=== PATIENT | male | born 1980 | race Caucasian/White ===

== ENCOUNTER 2016-10-10 13:00 | Emergency (ER) | payer MEDICAID ==
[~2016-10-10] VITALS: Ht 167.6 cm; Wt 77.3 kg
[~2016-10-10 13:00] MED LIST: HYDR-3731 PO; LEVE500T PO
--- OUTSIDE RECORDS SUMMARY | 2016-10-10 13:09 | XMS REPORT | Continuity of Care Document ---
Author Author [facility] Organization [facility] Address Unknown Phone Unavailable Care Team Providers Care Construction Skills Teacher Name Role Phone Hugo Bustillo PCP [phone] Source Comments Some departments are not documenting in the electronic medical record. If you do not see the information that you expected, contact Release of Information in the Health Information Management department at [phone] for further assistance in locating additional records.[facility] Active Allergies and Adverse Reactions No Known Allergies Current Medications Prescription Sig. Disp. Refills Start End Date Status Date levETIRAcetam (KEPPRA) Take 1 Tab by mouth twice 120 Tab 3 04/01/20 Active 500 mg tablet daily. 12 nicotine (NICODERM CQ Apply 1 Patch to top of 28 Patch 0 04/01/20 Active STEP 2) 14 mg/day patch skin as directed daily. 12 Active Problems Problem Noted Date Seizure (HCC) 03/29/2012 Aspiration pneumonia (HCC) 03/29/2012 Social History Tobacco Use Types Packs/Day Years Used Date Current Every Day Smoker Cigarettes 0.8 13 Alcohol Use Drinks/Week oz/Week Comments Yes 6 Cans of 3.6 beer Last Filed Vital Signs Vital Sign Reading Time Taken Blood Pressure 132/83 04/01/2012 3:00 PM CDT Pulse 97 04/01/2012 3:00 PM CDT Temperature 36.8 C (98.2 F) 04/01/2012 3:00 PM CDT Respiratory Rate - - Height 1.676 m (5' 6") 03/31/2012 7:49 PM CDT Weight 77.111 kg (170 lb) 03/29/2012 5:30 PM CDT Body Mass Index 27.45 03/29/2012 5:30 PM CDT Oxygen Saturation 100% 04/01/2012 3:00 PM CDT Plan of Care Health Maintenance Due Date Last Done Comments Physical (Comprehensive) 1989 Exam Pertussis Vaccine 1993 Tetanus Vaccine 1999 Influenza Vaccine 05/25/2015 Results from Last 3 Months Not on file
[2016-10-10 14:02] VITALS: BP 144/89
== END 2016-10-10 15:40 | disposition left against medical advice (07) ==
LOC: EDUNIT# 13:00 → ER 13:04
DX: R56.9 Unspecified convulsions (principal); Z53.21 Procedure and treatment not carried out due to patient leaving prior to being seen by health care provider
CPT/HCPCS: 99283

== ENCOUNTER → 2016-10-16 | Outpatient (CLI) | payer MEDICAID ==
[~2016-10-16] MED LIST changes: +CITA10TA7
--- OUTSIDE RECORDS SUMMARY | 2016-10-16 09:23 | XMS REPORT | Continuity of Care Document ---
Author Author [facility] Organization [facility] Address Unknown Phone Unavailable Care Team Providers Care Medical Director Name Role Phone Hugo Bustillo PCP [phone] Source Comments Some departments are not documenting in the electronic medical record. If you do not see the information that you expected, contact Release of Information in the Health Information Management department at [phone] for further assistance in locating additional records.[facility] Active Allergies and Adverse Reactions No Known [...]
--- NOTE | 2016-10-27 10:07 | ELECTROENCEPHALOPATHY REPORT ---
PROCEDURE PHYSICIAN: BRENTON SILVA DATE OF PROCEDURE: 10/16/2016 Mr. Kurt Alexander is a 36-year-old male with a history of seizure disorder. The patient has been having tonic-clonic seizure for 4 years having breakthrough seizures 1 to 2 times yearly. This study was requested to evaluate for seizure epileptiform activity. The background rhythm consisted of 10 Hz, 60 to 80 microvolts in amplitude, bilaterally symmetrical over the vertex region which was reactive to eye opening. Intermix with no epileptiform activity. Some pulse movement and muscle artifacts were present. The patient was awake, drowsy and asleep during this recording. Hyperventilation was performed and there was no build-up of diffuse or focal slow wave activity. Intermittent photic stimulation was done at various flash frequencies and no photic driving response was seen. IMPRESSION: This EEG is within normal limits in awake and sleepy states. No clear epileptiform activity is seen. A normal EEG does not exclude the diagnosis of seizure or epilepsy. Job ID: [id number] Dictated Date: 10/26/2016 15:31:19 Paving Foreman Date: 10/27/2016 10:04:18 / sarah
== END ==
LOC: RT 09:21
PROVIDERS: ATTEND Family Medicine
DX: G40.909 Epilepsy, unspecified, not intractable, without status epilepticus (principal)
CPT/HCPCS: 95819

== ENCOUNTER 2016-11-24 11:40 | Emergency (ER) | payer MEDICAID, OTHER ==
[~2016-11-24] VITALS: Ht 167.6 cm; Wt 77.3 kg
[~2016-11-24 11:40] MED LIST changes: -CITA10TA7
--- OUTSIDE RECORDS SUMMARY | 2016-11-24 11:44 | XMS REPORT | Continuity of Care Document ---
Author Author [facility] Organization [facility] Address Unknown Phone Unavailable Care Team Providers Care Special Collections Librarian Name Role Phone Hugo Bustillo PCP [phone] Source Comments Some departments are not documenting in the electronic medical record. If you do not see the information that you expected, contact Release of Information in the Health Information Management department at [phone] for further assistance in locating additional records.[facility] Active Allergies and Adverse Reactions [...]
[2016-11-24] MEDS ORDERED: CITA10TA7 (12:05)
--- NOTE | 2016-11-24 12:25 | ED Neurological Problem ---
General Chief Complaint: Neurological Problems Stated Complaint: SEIZURE Nursing Triage Note: PT ARRIVED PER EMS, PT HAD SEIZURE X2 AT WORK, PT IS AWAKE AND TIRED. PT POSTICLE FOR EMS. PT STATES IS COMPLIANT W MEDS, PT HAS SL IN L FA #20 BY EMS Nursing Sepsis Screen: No Definite Risk Source: patient Exam Limitations: no limitations History of Present Illness Time seen by provider: 12:24 Initial Comments 36-year-old male patient presents to the emergency department complains of having 2 seizures while at work today. Patient reportedly was post ictal by EMS. Patient states he has been taking medications as prescribed and denies missing any doses. Denies being incontinent of urine. Denies following and hitting his head. Patient has a h/o seizures since 2011 but no one has pin pointed the cause of the seizures. 1st episode today patient recalls standing and feeling his vision "go black" followed by lightheadedness and "blacking out ". Recalls waking up on the floor with "everyone around him". States the second episode he does not recall precipitating factors or symptoms. Timing/Duration: other (resolved at the time of exam.) Allergies and Home Medications Allergies Coded Allergies: Phenytoin Sodium Extended (Verified Allergy, Unknown, 09/27/15) phenytoin sodium (Verified Allergy, Unknown, 09/27/15) Home Medications Citalopram Hydrobromide 10 Mg Tablet, #30 (Reported) Levetiracetam 500 Mg Tab, 500 MG PO BID, (Reported) Constitutional: No chills, No dizziness, No fever, No malaise, other ((+) fatigue.) Eyes: Denies Blindness, Denies Blurred Vision, Denies Drainage, Denies Pain, Denies Photophobia, Denies Vision Changes Ears, Nose, Mouth, Throat: denies ear pain, denies ear discharge, denies nose pain, denies nose discharge, denies epistaxis, denies mouth pain, denies throat pain Respiratory: No cough, No short of breath Cardiovascular: No chest pain, No palpitations, syncope (possible syncope vs seizure.) Gastrointestinal: No abdominal pain, No constipation, No diarrhea, No nausea, No vomiting, No other (denies bowel incontinence) Genitourinary: No decreased output, No dysuria, No frequency, No hematuria, No incontinence Musculoskeletal: no symptoms reported Skin: no symptoms reported Psychiatric/Neurological: See HPI, Denies Cognitive Dysfunction, Headache, Denies Numbness, Denies Tingling, Denies Unable to Move Lower Ext, Denies Unable to Move Upper Ext, Denies Weakness All Other Systems Reviewed Negative Unless Noted: Yes (Negative excepted noted.) Past Rgbpdgu-Xjldzp-Jbuqdg Hx Patient Social History Alcohol Use: Rarely Uses Recreational Drug Use: Yes Smoking Status: Never a Smoker Recent Foreign Travel: No Contact w/Someone Who Travel: No Recent Infectious Disease Expo: No Recent Hopitalizations: No Seasonal Allergies Seasonal Allergies: No Surgeries HX Surgeries: Yes (LEFT ORBITAL BONE-PLATES AND SCREW, RIGHT JAW, lump removed behind R ear) Respiratory Hx Respiratory Disorders: Yes (history of pulm. edema, hypoxia and poss. 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, PAROTID GLAND TUMOR, DENTURES) Loss of Vision: Denies Hearing Impairment: Denies Cancer Hx Cancer: No Psychosocial Hx Psychiatric Problems: No Integumentary HX Skin/Integumentary Disorder: No Blood Transfusions Hx Blood Disorders: No Adverse Reaction to a Blood Tr: No Reviewed Nursing Assessment Reviewed/Agree w Nursing PMH: Yes Family Medical History Significant Family History: No Pertinent Family Hx Physical Exam Vital Signs Capillary Refill : Less Than 3 Seconds General Appearance: WD/WN, no apparent distress HEENT: PERRL/EOMI, normal ENT inspection, TMs normal, pharynx normal Neck: non-tender, full range of motion, supple, normal inspection Respiratory: lungs clear, normal breath sounds, no respiratory distress Cardiovascular: normal peripheral pulses, regular rate, rhythm, no murmur Gastrointestinal: normal bowel sounds, non tender, soft, No distended Back: normal inspection, no vertebral tenderness Extremities: normal inspection, no pedal edema, normal capillary refill, pelvis stable Neurologic/Psychiatric: travel manager II-XII nml as tested, no motor/sensory deficits, alert, normal mood/affect, oriented x 3 Crainal Nerves: normal hearing, normal speech, PERRL Coordination/Gait: normal finger to nose, normal gait, negative Romberg's sign Motor/Sensory: no motor deficit, no sensory deficit, no pronator drift Skin: normal color, warm/dry Progress/Results/Core Measures Results/Orders Lab Results Laboratory Tests Test 11/24/16 11:43 11/24/16 13:53 Range/Units White Blood Count 9.8 4.3-11.0 10^3/uL Red Blood Count 4.93 4.35-5.85 10^6/uL Hemoglobin 15.3 13.3-17.7 G/DL Hematocrit 44 40-54 % Mean Corpuscular Volume 88 80-99 FL Mean Corpuscular Hemoglobin 31 25-34 PG Mean Corpuscular Hemoglobin Concent 35 32-36 G/DL Red Cell Distribution Width 13.2 10.0-14.5 % Platelet Count 195 130-400 10^3/uL Mean Platelet Volume 11.6 H 7.4-10.4 FL Neutrophils (%) (Auto) 69 42-75 % Lymphocytes (%) (Auto) 19 12-44 % Monocytes (%) (Auto) 10 0-12 % Eosinophils (%) (Auto) 2 0-10 % Basophils (%) (Auto) 1 0-10 % Neutrophils # (Auto) 6.8 1.8-7.8 X 10^3 Lymphocytes # (Auto) 1.8 1.0-4.0 X 10^3 Monocytes # (Auto) 1.0 0.0-1.0 X 10^3 Eosinophils # (Auto) 0.2 0.0-0.3 10^3/uL Basophils # (Auto) 0.1 0.0-0.1 10^3/uL Sodium Level 137 135-145 MMOL/L Potassium Level 4.4 3.6-5.0 MMOL/L Chloride Level 104 98-107 MMOL/L Carbon Dioxide Level 25 21-32 MMOL/L Anion Gap 8 5-14 MMOL/L Blood Urea Nitrogen 11 7-18 MG/DL Creatinine 0.80 0.60-1.30 MG/DL Estimat Glomerular Filtration Rate > 60 BUN/Creatinine Ratio 14 Glucose Level 100 70-105 MG/DL Calcium Level 8.8 8.5-10.1 MG/DL Total Bilirubin 0.7 0.1-1.0 MG/DL Aspartate Amino Transf (AST/SGOT) 20 5-34 U/L Alanine Aminotransferase (ALT/SGPT) 26 0-55 U/L Alkaline Phosphatase 69 40-136 U/L Total Protein 6.6 6.4-8.2 G/DL Albumin 4.2 3.2-4.5 G/DL TSH [place] Testing 1.65 0.35-4.94 UIU/ML Salicylates Level < 5.0 L 5.0-20.0 MG/DL Acetaminophen Level < 10 L 10-30 UG/ML Levetiracetam (Keppra) Level 7 ug/mL Serum Alcohol < 10 <10 MG/DL Urine Color YELLOW Urine Clarity CLEAR Urine pH 7 5-9 Urine Specific Lyman 1.010 L 1.016-1.022 Urine Protein NEGATIVE NEGATIVE Urine Glucose (UA) NEGATIVE NEGATIVE Urine Ketones NEGATIVE NEGATIVE Urine Nitrite NEGATIVE NEGATIVE Urine Bilirubin NEGATIVE NEGATIVE Urine Urobilinogen 1 NORMAL MG/DL Urine Leukocyte Esterase NEGATIVE NEGATIVE Urine RBC (Auto) 1+ H NEGATIVE Urine RBC 0-2 /HPF Urine WBC NONE /HPF Urine Squamous Epithelial Cells RARE /HPF Urine Crystals PRESENT H /LPF Urine Amorphous Sediment FEW JODY PHOSPHATE H /LPF Urine Bacteria NEGATIVE /HPF Urine Casts NONE /LPF Urine Mucus NEGATIVE /LPF Urine Culture Indicated NO Urine Opiates Screen NEGATIVE NEGATIVE Urine Oxycodone Screen NEGATIVE NEGATIVE Urine Methadone Screen NEGATIVE NEGATIVE Urine Propoxyphene Screen NEGATIVE NEGATIVE Urine Barbiturates Screen NEGATIVE NEGATIVE Ur Tricyclic Antidepressants Screen NEGATIVE NEGATIVE Urine Phencyclidine Screen NEGATIVE NEGATIVE Urine Amphetamines Screen POSITIVE H NEGATIVE Urine Methamphetamines Screen NEGATIVE NEGATIVE Urine Benzodiazepines Screen NEGATIVE NEGATIVE Urine Cocaine Screen NEGATIVE NEGATIVE Urine Cannabinoids Screen NEGATIVE NEGATIVE My Orders Orders - JOSÉ MIGUEL ABREU Ua Culture If Indicated (11/24/16 12:10) Cbc With Automated Diff (11/24/16 12:10) Comprehensive Metabolic Panel (11/24/16 12:10) Alcohol (11/24/16 12:10) Drug Screen Stat (Urine) (11/24/16 12:10) Acetaminophen (11/24/16 12:10) Salicylate (11/24/16 12:10) Ekg Tracing (11/24/16 12:10) Thyroid Analyzer (11/24/16 12:10) Monitor-Rhythm Ecg Trace Only (11/24/16 12:10) Ketorolac Injection (Toradol Injection) (11/24/16 12:48) Ns Iv 1000 Ml (Sodium Chloride 0.9%) (11/24/16 12:48) Levetiracetam Level (Keppra) (11/24/16 14:01) Ekg Tracing (11/27/16 14:53) Iv Push Head Waiter/Waitress Ed (11/24/16 ) Medications Given in ED Vital Signs/I&O Blood Pressure Mean: 121 ECG Initial ECG Impression Date: Nov 24, 2016 Initial ECG Impression Time: 13:14 Initial ECG Rate: 86 Initial ECG Rhythm: Normal Sinus Initial ECG Intervals: Normal Initial ECG Impression: Normal Initial ECG Comparisson: Unchanged Comment Sinus rhythm. No STEMI or arrhythmia noted. ECG reviewed by Dr. Avalos. Departure Communication Progress Notes All laboratory findings and diagnostic study findings discussed with the patient. Patient reports feeling better with fluids and Toradol. No further seizures noted in the emergency department. Plan for discharge to home. All return precautions were discussed with the patient as described in the discharge instructions of this report. Patient voices understanding and agrees with the treatment plan. Impression Impression: Primary Impression: Syncopal episodes Qualified Codes: R55 - Syncope and collapse Additional Impression: Seizures Disposition: 01 HOME, SELF-CARE Condition: Improved Departure-Patient Inst. Decision time for Depature: 14:32 Referrals: ALMA DELIA MORENO MD (PCP/Family) Primary Care Physician Patient Instructions: Seizures, Adult (DC), Syncope (Fainting) (DC), Vasovagal Response (DC) Add. Discharge Instructions: All discharge instructions reviewed with patient and/or family. Voiced understanding. Continue usual home medications. Tylenol extra strength over- the-counter as directed for pain or headache. Ibuprofen 800 mg by mouth every 8 hours as needed for pain or headache. Follow-up with your family practitioner for recheck Sunday or Sunday. Return to the emergency department immediately for changes in behavior, dizziness, headache, seizure, shortness of air, vomiting, or any other concerns. Work/School Note: Work Release Form Date Seen in the Emergency Department: Nov 24, 2016 Return to Work: Nov 25, 2016 JOSÉ MIGUEL ABREU Nov 24, 2016 12:25
[2016-11-24 12:33] LABS: BASOPHILS # (AUTO) 0.1 10^3/uL (0.0-0.1); BASOPHILS % (AUTO) 1 % (0-10); EOSINOPHILS # (AUTO) 0.2 10^3/uL (0.0-0.3); EOSINOPHILS % (AUTO) 2 % (0-10); LYMPHOCYTES # (AUTO) 1.8 X 10^3 (1.0-4.0); LYMPHOCYTES % (AUTO) 19 % (12-44); MEAN CORPUSCULAR HEMOGLOBIN 31 PG (25-34); MEAN CORPUSCULAR HGB CONC 35 G/DL (32-36); MEAN CORPUSCULAR VOLUME 88 FL (80-99); MEAN PLATELET VOLUME 11.6 FL (7.4-10.4); MONOCYTES % (AUTO) 10 % (0-12); NEUTROPHILS # (AUTO) 6.8 X 10^3 (1.8-7.8); NEUTROPHILS % (AUTO) 69 % (42-75); PLATELET COUNT 195 10^3/uL (130-400); RED BLOOD COUNT 4.93 10^6/uL (4.35-5.85); RED CELL DISTRIBUTION WIDTH 13.2 % (10.0-14.5); WHITE BLOOD COUNT 9.8 10^3/uL (4.3-11.0)
[2016-11-24 12:47] LABS: ALANINE AMINOTRANSFERASE 26 U/L (0-55); ALBUMIN 4.2 G/DL (3.2-4.5); ANION GAP 8 MMOL/L (5-14); ASPARTATE AMINO TRANSFERASE 20 U/L (5-34); BILIRUBIN,TOTAL 0.7 MG/DL (0.1-1.0); BLOOD UREA NITROGEN 11 MG/DL (7-18); BUN/CREATININE RATIO 14; CALCIUM 8.8 MG/DL (8.5-10.1); CARBON DIOXIDE 25 MMOL/L (21-32); CHLORIDE 104 MMOL/L (98-107); GFR ESTIMATED > 60; GLUCOSE 100 MG/DL (70-105); POTASSIUM 4.4 MMOL/L (3.6-5.0); SALICYLATE < 5.0 MG/DL (5.0-20.0); SODIUM 137 MMOL/L (135-145); TOTAL PROTEIN 6.6 G/DL (6.4-8.2)
[2016-11-24] MEDS ORDERED: KETOROLAC 30 MG/ML VIAL IVP STA (12:48)
[2016-11-24] MEDS ORDERED: NS IV 1000 ML 1,000 ML IV ONE (12:48)
[2016-11-24 12:49] LABS: ACETAMINOPHEN < 10 UG/ML (10-30); ALCOHOL < 10 MG/DL (<10)
[2016-11-24 13:58] LABS: BILIRUBIN,URINE NEGATIVE (NEGATIVE); KETONES,URINE NEGATIVE (NEGATIVE); LEUKOCYTE ESTERASE ,URINE NEGATIVE (NEGATIVE); NITRITE,URINE NEGATIVE (NEGATIVE); PH,URINE 7 (5-9); PROTEIN,URINE NEGATIVE (NEGATIVE); UROBILINOGEN,URINE 1 MG/DL (NORMAL)
[2016-11-24 14:12] LABS: SQUAMOUS EPITHELIAL CELL,UR RARE /HPF
[2016-11-24 14:55] VITALS: BP 142/88
== END 2016-11-24 14:55 | disposition home or self-care (01) ==
LOC: ER 11:40 → EDUNIT# 11:40 → ER 14:55
DX: G40.909 Epilepsy, unspecified, not intractable, without status epilepticus (principal); Z79.899 Other long term (current) drug therapy
CPT/HCPCS: 36415; 80053; 80177; 80306; 80320; 80329; 81000; 84443; 85025; 93005; 96361; 96374

== ENCOUNTER 2016-11-24 15:45 | Emergency (ER) | payer OTHER ==
[~2016-11-24] VITALS: Ht 167.6 cm; Wt 77.3 kg
[~2016-11-24 15:45] MED LIST changes: +CITA10TA7
--- OUTSIDE RECORDS SUMMARY | 2016-11-24 15:50 | XMS REPORT | Continuity of Care Document ---
Author Author [facility] Organization [facility] Address Unknown Phone Unavailable Care Team Providers Care Plastic Press Operator Name Role Phone Hugo Bustillo PCP [phone] Source Comments Some departments are not documenting in the electronic medical record. If you do not see the information that you expected, contact Release of Information in the Health Information Management department at [phone] for further assistance in locating additional records.[facility] Active Allergies and Adverse Reactions No [...]
--- NOTE | 2016-11-24 16:47 | ED Neurological Problem ---
General Chief Complaint: seizure Stated Complaint: SEIZURE Nursing Triage Note: patient brought to the ED via EMS for c/o seizure Source: patient, family, EMS Exam Limitations: no limitations History of Present Illness Time seen by provider: 15:55 Initial Comments 36-year-old male patient presents to the emergency department with complaints of seizure. Patient was seen in the emergency department earlier this afternoon for syncopal episode and seizure. Patient states they were on their way home when he began having a seizure in the car as his brother was driving. He did not want to come back to the emergency department, but brother had called EMS. Patient denies being incontinent of bowel or bladder. Patient refuses lab draw, diagnostic studies, medications, or an IV. See H&P from visit earlier today. Timing/Duration: episodic, other (this a.m.) Allergies and Home Medications Allergies Coded Allergies: Phenytoin Sodium Extended (Verified Allergy, Unknown, 09/27/15) phenytoin sodium (Verified Allergy, Unknown, 09/27/15) Home Medications Citalopram Hydrobromide 10 Mg Tablet, #30 (Reported) Levetiracetam 500 Mg Tab, 500 MG PO BID, (Reported) Constitutional: no symptoms reported Eyes: No Symptoms Reported Ears, Nose, Mouth, Throat: no symptoms reported Respiratory: No cough, No short of breath Cardiovascular: No chest pain, No palpitations Gastrointestinal: No abdominal pain, No nausea, No vomiting Genitourinary: no symptoms reported Musculoskeletal: no symptoms reported Skin: no symptoms reported Psychiatric/Neurological: See HPI All Other Systems Reviewed Negative Unless Noted: Yes (Negative excepted noted.) Past Qtshplh-Dicklv-Uypnag Hx Patient Social History Recent Foreign Travel: No Contact w/Someone Who Travel: No Recent Hopitalizations: No Seasonal Allergies Seasonal Allergies: No Surgeries HX Surgeries: Yes (LEFT ORBITAL BONE-PLATES AND SCREW, RIGHT JAW, lump removed behind R ear) Respiratory Hx Respiratory Disorders: Yes (history of pulm. edema, hypoxia and poss. 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, PAROTID GLAND TUMOR, DENTURES) Loss of Vision: Denies Hearing Impairment: Denies Cancer Hx Cancer: No Psychosocial Hx Psychiatric Problems: No Integumentary HX Skin/Integumentary Disorder: No Blood Transfusions Hx Blood Disorders: No Adverse Reaction to a Blood Tr: No Reviewed Nursing Assessment Reviewed/Agree w Nursing PMH: Yes Family Medical History Significant Family History: No Pertinent Family Hx Physical Exam Vital Signs Capillary Refill : General Appearance: WD/WN, no apparent distress HEENT: PERRL/EOMI, normal ENT inspection, TMs normal, pharynx normal Neck: non-tender, full range of motion, supple, normal inspection Respiratory: lungs clear, normal breath sounds, no respiratory distress Cardiovascular: normal peripheral pulses, regular rate, rhythm, no murmur Peripheral Pulses: 2+ Dorsalis Pedis (R), 2+ Left Dors-Pedis (L), 2+ Radial Pulses (R), 2+ Radial Pulses (L) Gastrointestinal: normal bowel sounds, non tender, soft, No distended Back: normal inspection, no vertebral tenderness Extremities: non-tender, normal inspection, normal capillary refill, pelvis stable Neurologic/Psychiatric: tnt powder worker II-XII nml as tested, no motor/sensory deficits, alert, normal mood/affect, oriented x 3 Crainal Nerves: normal hearing, normal speech, PERRL Coordination/Gait: normal finger to nose, normal gait, negative Romberg's sign Motor/Sensory: no motor deficit, no sensory deficit, no pronator drift Skin: normal color, warm/dry Progress/Results/Core Measures Results/Orders My Orders Orders - JOSÉ MIGUEL ABREU Levetiracetam Tablet (Keppra Tablet) (11/24/16 17:00) Departure Communication Progress Notes [id number] Alejo with recommendations for admission. Patient refusing to be admitted. States if he has another seizure and has to return to the emergency department, he will consider admission at that time. Patient states he needs to be home with his daughter as he is a single father. I have discussed all risks, benefits, possible complications associated with admission versus leaving AGAINST MEDICAL ADVICE. Patient voices understanding and continues to refuse admission. Patient subsequently left AGAINST MEDICAL ADVICE. Patient case discussed with Dr. Avalos, he agrees with the plan of care. Impression Impression: Primary Impression: Seizures Disposition: 07 AGAINST MEDICAL ADVICE Condition: Against Medical Advice Departure-Patient Inst. Decision time for Depature: 16:55 Referrals: ALMA DELIA MORENO MD (PCP/Family) Primary Care Physician JOSÉ MIGUEL ABREU Nov 24, 2016 16:47
[2016-11-24] MEDS ORDERED: LEVETIRACETAM 1,000 MG (KEPPRA) TABLET PO ONE (17:00)
[2016-11-24 17:22] VITALS: BP 150/99
== END 2016-11-24 17:22 | disposition left against medical advice (07) ==
LOC: EDUNIT# 15:45 → ER 15:46
DX: G40.909 Epilepsy, unspecified, not intractable, without status epilepticus (principal); Z53.21 Procedure and treatment not carried out due to patient leaving prior to being seen by health care provider
CPT/HCPCS: 99283

== ENCOUNTER 2017-05-01 01:07 | Inpatient (IN) | payer OTHER ==
[~2017-05-01] VITALS: Ht 167.6 cm; Wt 88.7 kg
[2017-05-01] VITALS (33 sets, daily range): BP systolic 99–142; BP diastolic 60–99
[2017-05-01] MEDS ORDERED: NS IV 1000 ML 1,000 ML IV ONE (01:16)
[2017-05-01 01:21] LABS: BASOPHILS % (AUTO) 1 % (0-10); EOSINOPHILS # (AUTO) 0.1 10^3/uL (0.0-0.3); EOSINOPHILS % (AUTO) 1 % (0-10); LYMPHOCYTES % (AUTO) 34 % (12-44); MEAN CORPUSCULAR HEMOGLOBIN 31 PG (25-34); MEAN CORPUSCULAR HGB CONC 35 G/DL (32-36); MEAN CORPUSCULAR VOLUME 89 FL (80-99); MEAN PLATELET VOLUME 11.1 FL (7.4-10.4); MONOCYTES # (AUTO) 0.9 X 10^3 (0.0-1.0); MONOCYTES % (AUTO) 15 % (0-12); NEUTROPHILS # (AUTO) 2.9 X 10^3 (1.8-7.8); NEUTROPHILS % (AUTO) 48 % (42-75); PLATELET COUNT 167 10^3/uL (130-400); RED BLOOD COUNT 4.51 10^6/uL (4.35-5.85); RED CELL DISTRIBUTION WIDTH 12.6 % (10.0-14.5); WHITE BLOOD COUNT 5.9 10^3/uL (4.3-11.0)
[2017-05-01 01:27] LABS: PROTHROMBIN TIME PATIENT 13.1 SEC (12.2-14.7)
--- NOTE | 2017-05-01 01:27 | ED Psychosocial ---
General Chief Complaint: Overdose Stated Complaint: DRANK ANTIFREEZE Source: patient, EMS History of Present Illness Time seen by provider: 01:02 Initial Comments PT ARRIVES VIA EMS, WAS PICKED UP AT [facility] PT STATES HE TOOK "3 OR 4 SWALLOWS" OF ANTIFREEZE TONIGHT, TRYING TO KILL HIMSELF PT HAS ALSO HAD UNKNOWN AMOUNT OF VODKA AND HAS BEEN DRINKING Exosect ICE TEAS TONIGHT, SINCE GETTING OFF WORK TONIGHT AT 1700--"WENT OUT" AFTER WORK PT STATES HE HAS BEEN FEELING SUICIDAL FOR A "COUPLE OF WEEKS" -CALLED [facility] SUNDAY NIGHT / LAST NIGHT PT STATES HE AND GIRLFRIEND BROKE UP A LITTLE OVER A WEEK AGO. HE STATES HE CALLED HER TONIGHT AND TOLD HER HE WAS GOING TO KILL HIMSELF AND PT STATES "SHE DIDN'T CARE, SO I DID IT" PT STATES HE NORMALLY DRINKS A BOTTLE OF VODKA A DAY PT HAS BEEN SUICIDAL IN THE PAST, AND OVERDOSED ON ASPIRIN 4 YEARS AGO, BUT WAS NOT HOSPITALIZED PT HAS BEEN GOING TO A COUNSELOR AT [facility] IN THE LAST COUPLE OF WEEKS PCP: DR. MORENO Allergies and Home Medications Allergies Coded Allergies: Phenytoin Sodium Extended (Verified Allergy, Unknown, 09/27/15) phenytoin sodium (Verified Allergy, Unknown, 09/27/15) Home Medications Citalopram Hydrobromide 10 Mg Tablet, #30 (Reported) Levetiracetam 500 Mg Tab, 500 MG PO BID, (Reported) Constitutional: no symptoms reported EENTM: no symptoms reported Respiratory: no symptoms reported Cardiovascular: no symptoms reported Gastrointestinal: no symptoms reported, No abdominal pain, No nausea, No vomiting Genitourinary: no symptoms reported Musculoskeletal: no symptoms reported Skin: no symptoms reported Psychiatric/Neurological: See HPI, Depressed, Other (LAST SEIZURE 1 1/2 WEEKS AGO--STATES HE FREQUENTLY MISSES DOSES OF KEPPRA. PT HAS BOTTLE OF #60 KEPPRA 500 MG 1 BID WRITTEN /FILLED ON 04/20/17 AND #41 PILLS STILL IN BOTTLE, ONLY # 19 MISSING) Past Oyuluko-Qgvunf-Agltot Hx Patient Social History Alcohol Use: Regular Use (BOTTLE OF VODKA/DAY) Recreational Drug Use: Yes (THC, METH--DENIES IV USE) Smoking Status: Current Everyday Smoker (1/2-3/4 PPD) Type Used: Cigarettes Recent Foreign Travel: No Contact w/Someone Who Travel: No Recent Hopitalizations: No Seasonal Allergies Seasonal Allergies: No Surgeries HX Surgeries: Yes (LEFT ORBITAL BONE-PLATES AND SCREW, RIGHT JAW, lump removed behind R ear; LEFT PAROTID GLAND TUMOR) Respiratory Hx Respiratory Disorders: Yes (history of pulm. edema, hypoxia and poss. 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, PAROTID GLAND TUMOR, DENTURES) Loss of Vision: Denies Hearing Impairment: Denies Cancer Hx Cancer: No Psychosocial Hx Psychiatric Problems: No Integumentary HX Skin/Integumentary Disorder: No Blood Transfusions Hx Blood Disorders: No Adverse Reaction to a Blood Tr: No Family Medical History Significant Family History: No Pertinent Family Hx Physical Exam Vital Signs Vital Sign - Last 12Hours 05/01/17 05/01/17 01:07 01:10 Temp 98.2 Pulse 107 Resp 20 B/P (MAP) 141/107 Pulse Ox 93 O2 Delivery Room Air O2 Flow Rate 2.00 Capillary Refill : General Appearance: WD/WN, no apparent distress, other (REEKS OF ALCOHOL. SPEECH CLEAR. SLIGHTLY DROWSY. 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, no motor/sensory deficits, alert, oriented x 3 Appearance/Memory: no memory impairment Behavior/Eye Contact: cooperative, good eye contact Thoughts/Hallucinations: no apparent hallucination, other (SUICIDAL) Skin: normal color, warm/dry, tattoos/piercings (FEW TATTOOS) Progress/Results/Core Measures Results/Orders Lab Results Laboratory Tests Test 05/01/17 01:12 05/01/17 01:30 05/01/17 01:33 05/01/17 01:40 Range/Units White Blood Count 5.9 4.3-11.0 10^3/uL Red Blood Count 4.51 4.35-5.85 10^6/uL Hemoglobin 13.9 13.3-17.7 G/DL Hematocrit 40 40-54 % Mean Corpuscular Volume 89 80-99 FL Mean Corpuscular Hemoglobin 31 25-34 PG Mean Corpuscular Hemoglobin Concent 35 32-36 G/DL Red Cell Distribution Width 12.6 10.0-14.5 % Platelet Count 167 130-400 10^3/uL Mean Platelet Volume 11.1 H 7.4-10.4 FL Neutrophils (%) (Auto) 48 42-75 % Lymphocytes (%) (Auto) 34 12-44 % Monocytes (%) (Auto) 15 H 0-12 % Eosinophils (%) (Auto) 1 0-10 % Basophils (%) (Auto) 1 0-10 % Neutrophils # (Auto) 2.9 1.8-7.8 X 10^3 Lymphocytes # (Auto) 2.0 1.0-4.0 X 10^3 Monocytes # (Auto) 0.9 0.0-1.0 X 10^3 Eosinophils # (Auto) 0.1 0.0-0.3 10^3/uL Basophils # (Auto) 0.0 0.0-0.1 10^3/uL Prothrombin Time 13.1 12.2-14.7 SEC INR Comment 1.0 0.8-1.4 Activated Partial Thromboplast Time 34 24-35 SEC Sodium Level 141 135-145 MMOL/L Potassium Level 3.5 L 3.6-5.0 MMOL/L Chloride Level 110 H 98-107 MMOL/L Carbon Dioxide Level 19 L 21-32 MMOL/L Anion Gap 12 5-14 MMOL/L Blood Urea Nitrogen 7 7-18 MG/DL Creatinine 0.81 0.60-1.30 MG/DL Estimat Glomerular Filtration Rate > 60 BUN/Creatinine Ratio 9 Glucose Level 96 70-105 MG/DL Calcium Level 8.0 L 8.5-10.1 MG/DL Magnesium Level 1.8 1.8-2.4 MG/DL Total Bilirubin 0.3 0.1-1.0 MG/DL Aspartate Amino Transf (AST/SGOT) 22 5-34 U/L Alanine Aminotransferase (ALT/SGPT) 20 0-55 U/L Alkaline Phosphatase 68 40-136 U/L Total Protein 5.9 L 6.4-8.2 GM/DL Albumin 3.5 3.2-4.5 GM/DL Amylase Level 39 25-125 U/L TSH [place] Testing 3.68 0.35-4.94 UIU/ML Salicylates Level < 5.0 L 5.0-20.0 MG/DL Acetaminophen Level < 10 L 10-30 UG/ML Serum Alcohol 175 H <10 MG/DL Blood Gas Puncture Site RRAD Blood Gas Patient Temperature 98.2 Arterial Blood pH 7.34 *L 7.37-7.43 Arterial Blood Partial Pressure CO2 45 35-45 MMHG Arterial Blood Partial Pressure O2 59 L 79-93 MMHG Arterial Blood HCO3 24 23-27 MMOL/L Arterial Blood Total CO2 25.1 21.0-31.0 MMOL/L Arterial Blood Oxygen Saturation 89 L 94-100 % Arterial Blood Base Excess -1.3 -2.5-2.5 MMOL/L Gabriele Test YES-POS Blood Gas Ventilator Setting NO Blood Gas Inspired Oxygen 2L Urine Color YELLOW Urine Clarity CLEAR Urine pH 6 5-9 Urine Specific [place] 1.015 L 1.016-1.022 Urine Protein NEGATIVE NEGATIVE Urine Glucose (UA) NEGATIVE NEGATIVE Urine Ketones NEGATIVE NEGATIVE Urine Nitrite NEGATIVE NEGATIVE Urine Bilirubin NEGATIVE NEGATIVE Urine Urobilinogen NORMAL NORMAL MG/DL Urine Leukocyte Esterase NEGATIVE NEGATIVE Urine RBC (Auto) 1+ H NEGATIVE Urine RBC RARE /HPF Urine WBC NONE /HPF Urine Squamous Epithelial Cells RARE /HPF Urine Crystals NONE /LPF Urine Bacteria NEGATIVE /HPF Urine Casts NONE /LPF Urine Mucus NEGATIVE /LPF Urine Culture Indicated NO Urine Opiates Screen NEGATIVE NEGATIVE Urine Oxycodone Screen NEGATIVE NEGATIVE Urine Methadone Screen NEGATIVE NEGATIVE Urine Propoxyphene Screen NEGATIVE NEGATIVE Urine Barbiturates Screen NEGATIVE NEGATIVE Ur Tricyclic Antidepressants Screen NEGATIVE NEGATIVE Urine Phencyclidine Screen NEGATIVE NEGATIVE Urine Amphetamines Screen NEGATIVE NEGATIVE Urine Methamphetamines Screen NEGATIVE NEGATIVE Urine Benzodiazepines Screen NEGATIVE NEGATIVE Urine Cocaine Screen NEGATIVE NEGATIVE Urine Cannabinoids Screen NEGATIVE NEGATIVE Test 05/01/17 02:00 Range/Units My Orders Orders - PERLA WEN DO O2 (05/01/17 01:14) Ua Culture If Indicated (05/01/17 01:14) Thyroid Analyzer (05/01/17 01:14) Drug Screen Stat (Urine) (05/01/17 01:14) Cbc With Automated Diff (05/01/17 01:14) Comprehensive Metabolic Panel (05/01/17 01:14) Amylase (05/01/17 01:14) Alcohol (05/01/17 01:14) Acetaminophen (05/01/17 01:14) Salicylate (05/01/17 01:14) Ekg Tracing (05/01/17 01:14) Monitor-Rhythm Ecg Trace Only (05/01/17 01:14) Ethylene Glycol (05/01/17 01:16) Arterial Blood Gas (05/01/17 01:16) Magnesium (05/01/17 01:16) Protime With Inr (05/01/17 01:16) Partial Thromboplastin Time (05/01/17 01:16) Saline Lock/Iv-Start (05/01/17 01:16) Ns Iv 1000 Ml (Sodium Chloride 0.9%) (05/01/17 01:16) Ns (Ivpb) (Sodium Chloride 0.9% Ivpb Bag (05/01/17 01:37) Osmolality Serum (05/01/17 01:51) Sodium Bicarbonate 8.4% Syr (Sodium Bica (05/01/17 02:00) Fomepizole (05/01/17 02:01) Medications Given in ED Current Medications Medications Dose Ordered Sig/Chrystal Route Start Time Stop Time Status Last Admin Dose Admin Sodium Chloride 1,000 ml @ 0 mls/hr Q0M ONCE IV 05/01/17 01:16 05/01/17 01:19 DC 05/01/17 01:50 0 MLS/HR Vital Signs/I&O Vital Sign - Last 12Hours 05/01/17 05/01/17 01:07 01:10 Temp 98.2 Pulse 107 Resp 20 B/P (MAP) 141/107 Pulse Ox 93 96 O2 Delivery Room Air Nasal Cannula O2 Flow Rate 2.00 Progress Note : Progress Note POISON CONTROL CONTACTED BY RN. THEY RECOMMEND PROPHYLACTIC TREATMENT WITH FOMEPIZOLE IF AVAILABLE, OR ETHANOL O2 SATS IN UPPER 80'S WHILE SLEEPING--UP TO MID TO UPPER 90'S 90'S ON O2 AT 2L/ NC UNEVENTFUL ER STAY SLEPT FOR REMAINDER OF ER STAY. AWAKENS TO TACTILE AND VERBAL STIMULI. URINE SAMPLE IN ER DID NOT GLOW IN THE DARK ECG Initial ECG Impression Time: 01:25 Initial ECG Rate: 98 Initial ECG Rhythm: Normal Sinus Initial ECG Impression: Normal Initial ECG Comparisson: No Previous ECG Available Departure Communication Progress Notes 0210--SPOKE WITH , ACCEPTS PT FOR ADMIT. WILL CONSULT E-ICU AND DR. ROSS WELL [facility]. Impression Impression: Primary Impression: Suicide attempt Additional Impressions: REPORTED INGESTION OF ANTIFREEZE-ETHYLENE GLYCOL Alcohol intoxication in active alcoholic MILD METABOLIC ACIDOSIS Hypoxia Disposition: ADMITTED INPATIENT Condition: Stable Decision to Admit Reason: Admit from ER (General) Decision to Admit/Date: May 01, 2017 Time/Decision to Admit Time: 02:10 Departure-Patient Inst. Referrals: ALMA DELIA MORENO MD (PCP/Family) Primary Care Physician Patient Instructions: ALCOHOL AND SUBSTANCE ABUSE PERLA WEN DO May 01, 2017 01:27
[2017-05-01] MEDS ORDERED: NS (IVPB) 100 ML ONE (01:37)
[2017-05-01 01:40] LABS: ALANINE AMINOTRANSFERASE 20 U/L (0-55); ALBUMIN 3.5 GM/DL (3.2-4.5); ALCOHOL 175 MG/DL (<10); AMYLASE 39 U/L (25-125); ANION GAP 12 MMOL/L (5-14); ASPARTATE AMINO TRANSFERASE 22 U/L (5-34); BILIRUBIN,TOTAL 0.3 MG/DL (0.1-1.0); BLOOD UREA NITROGEN 7 MG/DL (7-18); BUN/CREATININE RATIO 9; CARBON DIOXIDE 19 MMOL/L (21-32); CHLORIDE 110 MMOL/L (98-107); CREATININE SERUM 0.81 MG/DL (0.60-1.30); GFR ESTIMATED > 60; GLUCOSE 96 MG/DL (70-105); MAGNESIUM 1.8 MG/DL (1.8-2.4); POTASSIUM 3.5 MMOL/L (3.6-5.0); SALICYLATE < 5.0 MG/DL (5.0-20.0); SODIUM 141 MMOL/L (135-145); TOTAL PROTEIN 5.9 GM/DL (6.4-8.2)
[2017-05-01 01:41] LABS: ACETAMINOPHEN < 10 UG/ML (10-30)
[2017-05-01 01:47] LABS: BILIRUBIN,URINE NEGATIVE (NEGATIVE); KETONES,URINE NEGATIVE (NEGATIVE); LEUKOCYTE ESTERASE ,URINE NEGATIVE (NEGATIVE); NITRITE,URINE NEGATIVE (NEGATIVE); PH,URINE 6 (5-9); PROTEIN,URINE NEGATIVE (NEGATIVE); UROBILINOGEN,URINE NORMAL (NORMAL)
[2017-05-01 01:50] LABS: ABG BASE EXCESS -1.3 MMOL/L (-2.5-2.5); ABG HCO3 24 MMOL/L (23-27); ABG OXYGEN SATURATION 89 % (94-100); ABG PCO2 45 MMHG (35-45); ABG PO2 59 MMHG (79-93); ABG TCO2 25.1 MMOL/L (21.0-31.0)
[2017-05-01] MEDS ORDERED: NS IV ONE (01:50)
[2017-05-01] MEDS ORDERED: FOMEPIZOLE IV ONE (01:50)
[2017-05-01 01:51] LABS: ALLENS TEST YES-POS; PATIENT TEMP 98.2
[2017-05-01 01:52] LABS: ABG PH 7.34 (7.37-7.43)
[2017-05-01 01:56] LABS: SQUAMOUS EPITHELIAL CELL,UR RARE /HPF
[2017-05-01] MEDS ORDERED: SODIUM BICARB 8.4% 50 MEQ/50 ML (ABBOTT) SYR IV ONE (02:00)
[2017-05-01] MEDS ORDERED: [UNRECOGNIZED DRUG - OTHER] STA (02:01)
[2017-05-01] MEDS ORDERED: NORMAL SALINE STA (02:01)
[2017-05-01] MEDS: NS IV 1000 ML 1,000 ML IV SCH ×4 (04:03→20:30)
[2017-05-01] MEDS ORDERED: ONDANSETRON 4 MG/2 ML (SDV) Z0FRAN IV PRN (06:00)
[2017-05-01] MEDS ORDERED: CATHETER FLUSH 10 ML SYR IV PRN (06:00)
[2017-05-01 06:08] LABS: ABG BASE EXCESS -0.9 MMOL/L (-2.5-2.5); ABG HCO3 24 MMOL/L (23-27); ABG OXYGEN SATURATION 98 % (94-100); ABG PCO2 47 MMHG (35-45); ABG PO2 94 MMHG (79-93); ABG TCO2 25.7 MMOL/L (21.0-31.0); ALLENS TEST YES-POS; PATIENT TEMP 98.5
[2017-05-01] MEDS: CATHETER FLUSH 10 ML SYR IV SCH ×3 (06:08→20:31)
[2017-05-01 06:09] LABS: ABG PH 7.33 (7.37-7.43)
[2017-05-01] MEDS: MAGNESIUM 1 GM/100 ML IVPB 100 ML IV SCH (06:09)
[2017-05-01] MEDS: KCL 20 MEQ TAB (K-DUR) PO SCH (06:09)
[2017-05-01] MEDS: POTASSIUM CL 10MEQ/50ML IVPB 50 ML IV SCH (06:09)
[2017-05-01 06:24] LABS: BASOPHILS % (AUTO) 1 % (0-10); EOSINOPHILS # (AUTO) 0.1 10^3/uL (0.0-0.3); EOSINOPHILS % (AUTO) 2 % (0-10); LYMPHOCYTES # (AUTO) 1.4 X 10^3 (1.0-4.0); LYMPHOCYTES % (AUTO) 31 % (12-44); MEAN CORPUSCULAR HEMOGLOBIN 30 PG (25-34); MEAN CORPUSCULAR HGB CONC 34 G/DL (32-36); MEAN CORPUSCULAR VOLUME 90 FL (80-99); MEAN PLATELET VOLUME 11.4 FL (7.4-10.4); MONOCYTES # (AUTO) 0.5 X 10^3 (0.0-1.0); MONOCYTES % (AUTO) 10 % (0-12); NEUTROPHILS # (AUTO) 2.6 X 10^3 (1.8-7.8); NEUTROPHILS % (AUTO) 56 % (42-75); PLATELET COUNT 174 10^3/uL (130-400); RED BLOOD COUNT 4.51 10^6/uL (4.35-5.85); RED CELL DISTRIBUTION WIDTH 12.8 % (10.0-14.5); WHITE BLOOD COUNT 4.6 10^3/uL (4.3-11.0)
[2017-05-01 06:47] LABS: ALANINE AMINOTRANSFERASE 20 U/L (0-55); ALBUMIN 3.3 GM/DL (3.2-4.5); ANION GAP 11 MMOL/L (5-14); ASPARTATE AMINO TRANSFERASE 23 U/L (5-34); BILIRUBIN,TOTAL 0.3 MG/DL (0.1-1.0); BLOOD UREA NITROGEN 6 MG/DL (7-18); BUN/CREATININE RATIO 8; CALCIUM 7.6 MG/DL (8.5-10.1); CARBON DIOXIDE 22 MMOL/L (21-32); CHLORIDE 110 MMOL/L (98-107); CREATININE SERUM 0.75 MG/DL (0.60-1.30); GFR ESTIMATED > 60; GLUCOSE 97 MG/DL (70-105); MAGNESIUM 1.8 MG/DL (1.8-2.4); PHOSPHORUS 3.7 MG/DL (2.3-4.7); POTASSIUM 4.2 MMOL/L (3.6-5.0); SODIUM 143 MMOL/L (135-145); TOTAL PROTEIN 5.5 GM/DL (6.4-8.2)
--- NOTE | 2017-05-01 07:52 | Pulmonary Consultation ---
History of Present Illness History of Present Illness Date of Consultation 05/01/17 07:47 Time Seen by Provider: 14:13 Date of Admission History of Present Illness 36yo presented to ED via EMS after being picked up at [facility] by EMS. Pt admitted to taking 3 shots of antifreeze in suicidal attempt. Pt had also been binge drinking alcohol. On a daily bases patient drinks 2 beers and "small bottle" of Vodka daily. Pt has been suicidal x 2 wks. He called [facility] Sunday night. Pt has been depressed since his girlfriend broke up with him 2 wks ago. He had suicidal attempt 4yrs ago when he overdosed on ASA. He has been seeing a counselor at [facility]. I am consulted for ICU management. Allergies and Home Medications Allergies Coded Allergies: Phenytoin Sodium Extended (Verified Allergy, Unknown, 09/27/15) phenytoin sodium (Verified Allergy, Unknown, 09/27/15) Home Medications Levetiracetam 500 Mg Tab, 500 MG PO BID, (Reported) Past Luaebaw-Fowkve-Nrywzx Hx Patient Social History Alcohol Use: Regular Use Recreational Drug Use: Yes (THC, METH--DENIES IV USE) Drug of Choice: METH AND MARIJUANA Smoking Status: Current Everyday Smoker Type Used: Cigarettes 2nd Hand Smoke Exposure: No Recent Foreign Travel: No Contact w/Someone Who Travel: No Recent Infectious Disease Expo: No Recent Hopitalizations: No Physical Abuse Screen: No Sexual Abuse: No Seasonal Allergies Seasonal Allergies: No Surgeries HX Surgeries: Yes (LEFT ORBITAL BONE-PLATES AND SCREW, RIGHT JAW, lump removed behind R ear; LEFT PAROTID GLAND TUMOR) Respiratory Hx Respiratory Disorders: Yes (history of pulm. edema, hypoxia and poss. 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, PAROTID GLAND TUMOR, DENTURES) Loss of Vision: Denies Hearing Impairment: Denies Cancer Hx Cancer: No Psychosocial Hx Psychiatric Problems: Yes Behavioral Health Disorders: Depression Integumentary HX Skin/Integumentary Disorder: No Blood Transfusions Hx Blood Disorders: No Adverse Reaction to a Blood Tr: No Family Medical History Significant Family History: No Pertinent Family Hx Review of Systems Time Seen by Provider: 14:13 Constitutional: No: Fever, Chills, Sweats, Weakness, Malaise, Other Eyes: No: Pain, Conjunctivae inflammation, Eyelid inflammation, Other, Redness Exam Exam Vital Signs Date Time Temp Pulse Resp B/P (MAP) Pulse Ox O2 Delivery O2 Flow Rate FiO2 05/01/17 06:45 92 16 102/60 98 Nasal Cannula 3.00 05/01/17 06:30 92 12 102/63 97 Nasal Cannula 3.00 05/01/17 06:15 89 11 110/74 97 Nasal Cannula 3.00 05/01/17 06:00 110 23 116/74 98 Nasal Cannula 3.00 05/01/17 05:45 92 14 115/75 97 Nasal Cannula 3.00 05/01/17 05:30 90 13 118/78 96 Nasal Cannula 3.00 05/01/17 05:15 101 21 113/77 95 Nasal Cannula 3.00 05/01/17 05:00 92 11 103/73 97 Nasal Cannula 3.00 05/01/17 04:45 95 14 115/77 96 Nasal Cannula 3.00 05/01/17 04:30 92 14 102/77 96 Nasal Cannula 3.00 05/01/17 04:15 90 16 104/64 98 Nasal Cannula 3.00 05/01/17 04:00 99 Nasal Cannula 3.00 05/01/17 04:00 88 14 106/68 99 Nasal Cannula 3.00 05/01/17 03:45 90 9 105/63 98 Nasal Cannula 3.00 05/01/17 03:44 99 Nasal Cannula 3.00 05/01/17 03:30 92 14 100/62 96 Nasal Cannula 3.00 05/01/17 03:15 90 22 106/62 98 Nasal Cannula 3.00 05/01/17 03:10 102 05/01/17 03:10 98.6 102 15 110/68 97 Nasal Cannula 3.00 05/01/17 03:04 98.2 97 16 97 Nasal Cannula 2.00 05/01/17 01:10 96 Nasal Cannula 2.00 05/01/17 01:07 98.2 107 20 141/107 93 Room Air I & O 05/01/17 07:00 Intake Total 1100 ml Output Total 450 ml Balance 650 ml General Appearance: No Apparent Distress, WD/WN, Anxious Respiratory: Chest Non Tender, Lungs Clear, Normal Breath Sounds, No Accessory Muscle Use, No Respiratory Distress Cardiovascular: Regular Rate, Rhythm, No Murmur Capillary Refill: Less Than 3 Seconds Gastrointestinal: normal bowel sounds, non tender, soft Neurologic/Psychiatric: Alert, Oriented x3, Depressed Affect Skin: Normal Color, Warm/Dry Lymphatic: No Adenopathy Results Lab Laboratory Tests 05/01/17 01:12 05/01/17 06:05 Assessment/Plan Assessment/Plan Attempted suicide with severe depression -- PT has attempted suicide in the past by taking a handful of ASA -He admits to having 3 shots of antifreeze -Mental health evaluation -PT can not be allowed to leave AMA until after evaluated by -Pt will probably need inpatient psych. Anion gap metabolic acidosis -Fomepizole -Poison control was contacted ETOH dependance - monitor for withdrawal -Ativan PRN hx of seizures -continue Keppra -seizure precautions I discussed patients care with RN, pharmacy, and PCP. 255 Clinical Quality Measures DVT/VTE Risk/Contraindication: Risk Factor Score Per Nursin RFS Level Per Nursing on Admit: 1=Low/No VTE PPX SANG ROSS DO May 01, 2017 07:52
--- NOTE | 2017-05-01 07:55 | History & Physicial ---
History of Present Illness History of Present Illness Reason for visit/HPI 36-year-old male admitted through the emergency room during the senior client advisor after apparently having a drinking binge of vodka and [place] ice tea. He apparently also took 3 or 4 drinks of antifreeze in an attempt to kill himself. He has been seeing mental health over the past 2 weeks, according to patient. He is currently not on any antidepressants. He does take Keppra for seizure disorder. Date of Admission May 01, 2017 at 02:10 Date Seen by Provider: May 01, 2017 Time Seen by Provider: 07:00 I consulted on this patient on 05/01/17 07:49 Attending Physician lAma Delia Moreno MD Admitting Physician Alma Delia Moreno MD Consult Allergies and Home Medications Allergies Coded Allergies: Phenytoin Sodium Extended (Verified Allergy, Unknown, 09/27/15) phenytoin sodium (Verified Allergy, Unknown, 09/27/15) Home Medications Levetiracetam 500 Mg Tab, 500 MG PO BID, (Reported) Past Rvrycla-Pezwjk-Beygzv Hx Patient Social History Marrital Status: single Number of Children: 1 Number of living children: 1 Alcohol Use: Regular Use Recreational Drug Use: Yes (THC, METH--DENIES IV USE) Drug of Choice: METH AND MARIJUANA Smoking Status: Current Everyday Smoker Type Used: Cigarettes 2nd Hand Smoke Exposure: No Physical Abuse Screen: No Sexual Abuse: No Recent Foreign Travel: No Contact w/other who traveled: No Recent Hopitalizations: No Recent Infectious Disease Expo: No Seasonal Allergies Seasonal Allergies: No Surgeries HX Surgeries: Yes (LEFT ORBITAL BONE-PLATES AND SCREW, RIGHT JAW, lump removed behind R ear; LEFT PAROTID GLAND TUMOR) Respiratory Hx Respiratory Disorders: Yes (history of pulm. edema, hypoxia and poss. aspiration in March 2012 from seiz) Cardiovascular Hx Cardiovascular Disorders: No Neurological Hx Neurological Disorders: Yes Neurological Disorders: Seizure Disorder Reproductive System Hx Reproductive Disorders: No Sexually Transmitted Disease: No HIV/AIDS: No Genitourinary Hx Genitourinary Disorders: No Gastrointestinal Hx Gastrointestinal Disorders: No Musculoskeletal Hx Musculoskeletal Disorders: Yes Musculoskeletal Disorders: Fractures Endocrine Hx Endocrine Disorders: No HEENT HX ENT Disorders: Yes (Jaw and facial fractures, PAROTID GLAND TUMOR, DENTURES) Loss of Vision: Denies Hearing Impairment: Denies Cancer Hx Cancer: No Psychosocial Hx Psychiatric Problems: Yes Behavioral Health Disorders: Depression Integumentary HX Skin/Integumentary Disorder: No Blood Transfusions Hx Blood Disorders: No Adverse Reaction to a Blood Tr: No Family Medical History Significant Family History: No Pertinent Family Hx Constitutional: see HPI Physical Exam Vital Signs Vital Sign - Last 12Hours 05/01/17 05/01/17 01:07 01:10 Temp 98.2 Pulse 107 Resp 20 B/P (MAP) 141/107 Pulse Ox 93 O2 Delivery Room Air O2 Flow Rate 2.00 Capillary Refill : Less Than 3 Seconds General Appearance: Anxious Eyes: Bilateral Eye Normal Inspection HEENT: Pharynx Normal Neck: Supple Respiratory: Lungs Clear Cardiovascular: Regular Rate, Rhythm Gastrointestinal: Soft, Distended (slight) Back: Normal Inspection Extremity: Normal Capillary Refill Assessment/Plan Assessment and Plan 1. Ethylene glycol ingestion -Fomepizole given in the emergency department per protocol 2 Ethyl alcohol intoxication 3. Depression -mental health evaluation 4. Suicidal actions 5. Seizure disorder--history of -Restart Keppra Problems: Admission Diagnosis 1. Ethylene glycol ingestion 2 Ethyl alcohol intoxication 3. Depression 4. Suicidal actions 5. Seizure disorder--history of Clinical Quality Measures DVT/VTE Risk/Contraindication: Risk Factor Score Per Nursin RFS Level Per Nursing on Admit: 1=Low/No VTE PPX ALMA DELIA MORENO MD May 01, 2017 07:55
--- NOTE | 2017-05-01 07:56 | Diagnostic Imaging Report ---
INDICATION: Suicide attempt, alcohol intoxication and antifreeze ingestion. COMPARISON: 03/29/2012. FINDINGS: Bilateral perihilar and basilar heterogeneous opacities are present. Mild central vascular indistinctness. No pleural effusion or pneumothorax. Heart is normal in size. IMPRESSION: Bibasilar heterogeneous opacities may relate to aspiration or asymmetric pulmonary edema. Some of these opacities may represent chronic atelectasis or scar. Dictated by: Dictated on workstation # [id number]
[2017-05-01] MEDS ORDERED: LORazepam INJ 2 MG/ML (ATIVAN) VIAL IV PRN (08:15)
[2017-05-01] MEDS: LEVETIRACETAM 500 MG (KEPPRA) TAB PO SCH ×2 (08:29→20:31)
[2017-05-01] MEDS: NICOTINE 21 MG (NICODERM) PATCH TD SCH (08:29)
[2017-05-01] MEDS: FOMEPIZOLE IV SCH (14:54)
[2017-05-01] MEDS: NS IV SCH (14:54)
[2017-05-01] MEDS: LORazepam INJ 2 MG/ML (ATIVAN) VIAL IV PRN (20:38)
[2017-05-02] VITALS (24 sets, daily range): BP systolic 104–154; BP diastolic 66–116
[2017-05-02] MEDS: NS IV 1000 ML 1,000 ML IV SCH ×5 (01:35→19:38)
[2017-05-02] MEDS: FOMEPIZOLE IV SCH ×2 (01:36→14:39)
[2017-05-02] MEDS: NS IV SCH ×2 (01:36→14:39)
[2017-05-02 04:42] LABS: BASOPHILS % (AUTO) 1 % (0-10); EOSINOPHILS # (AUTO) 0.1 10^3/uL (0.0-0.3); EOSINOPHILS % (AUTO) 2 % (0-10); LYMPHOCYTES # (AUTO) 1.4 X 10^3 (1.0-4.0); LYMPHOCYTES % (AUTO) 30 % (12-44); MEAN CORPUSCULAR HEMOGLOBIN 31 PG (25-34); MEAN CORPUSCULAR HGB CONC 34 G/DL (32-36); MEAN CORPUSCULAR VOLUME 91 FL (80-99); MEAN PLATELET VOLUME 11.2 FL (7.4-10.4); MONOCYTES # (AUTO) 0.4 X 10^3 (0.0-1.0); MONOCYTES % (AUTO) 9 % (0-12); NEUTROPHILS # (AUTO) 2.9 X 10^3 (1.8-7.8); NEUTROPHILS % (AUTO) 59 % (42-75); PLATELET COUNT 145 10^3/uL (130-400); RED BLOOD COUNT 4.33 10^6/uL (4.35-5.85); RED CELL DISTRIBUTION WIDTH 12.9 % (10.0-14.5); WHITE BLOOD COUNT 4.9 10^3/uL (4.3-11.0)
[2017-05-02 04:52] LABS: ANION GAP 9 MMOL/L (5-14); BLOOD UREA NITROGEN 7 MG/DL (7-18); BUN/CREATININE RATIO 9; CARBON DIOXIDE 22 MMOL/L (21-32); CHLORIDE 108 MMOL/L (98-107); CREATININE SERUM 0.75 MG/DL (0.60-1.30); GFR ESTIMATED > 60; GLUCOSE 97 MG/DL (70-105); MAGNESIUM 1.5 MG/DL (1.8-2.4); PHOSPHORUS 3.7 MG/DL (2.3-4.7); POTASSIUM 3.9 MMOL/L (3.6-5.0); SODIUM 139 MMOL/L (135-145)
[2017-05-02] MEDS: CATHETER FLUSH 10 ML SYR IV SCH ×3 (05:52→22:11)
[2017-05-02] MEDS: POTASSIUM CL 10MEQ/50ML IVPB 50 ML IV SCH (05:53)
[2017-05-02] MEDS: KCL 20 MEQ TAB (K-DUR) PO SCH (05:54)
[2017-05-02] MEDS: MAGNESIUM 1 GM/100 ML IVPB 100 ML IV SCH ×3 (05:55→07:38)
--- NOTE | 2017-05-02 06:41 | Pulmonary Progress Note ---
Subjective Time Seen by Provider: 06:51 Subjective/Events-last exam PT appears comfortable and compliant Exam Exam Vital Signs Date Time Temp Pulse Resp B/P (MAP) Pulse Ox O2 Delivery O2 Flow Rate FiO2 05/02/17 06:00 72 14 108/87 98 Nasal Cannula 2.00 05/02/17 05:00 64 20 111/82 95 Nasal Cannula 2.00 05/02/17 04:00 99.5 Nasal Cannula 2.00 05/02/17 04:00 68 13 126/92 98 Nasal Cannula 2.00 05/02/17 04:00 96 Nasal Cannula 2.00 05/02/17 03:00 80 14 113/68 98 Nasal Cannula 2.00 05/02/17 02:02 Nasal Cannula 2.00 05/02/17 02:00 78 28 107/66 93 Room Air 05/02/17 01:00 77 05/02/17 01:00 71 25 104/69 92 Room Air 05/02/17 00:00 76 24 129/99 93 Room Air 05/02/17 00:00 99.2 Room Air 05/02/17 00:00 96 Room Air 05/01/17 23:00 70 10 118/86 92 Room Air 05/01/17 22:00 75 25 126/86 94 Room Air 05/01/17 21:00 80 28 127/91 95 Room Air 05/01/17 20:00 81 23 138/74 93 Room Air 05/01/17 20:00 99.3 Room Air 05/01/17 20:00 96 Room Air 05/01/17 19:00 80 26 129/86 94 Room Air 05/01/17 19:00 84 05/01/17 18:00 81 19 104/73 92 Room Air 05/01/17 17:00 80 19 99/64 94 Room Air 05/01/17 16:00 81 23 138/74 93 Room Air 05/01/17 16:00 96 Nasal Cannula 05/01/17 15:00 79 20 127/85 90 Room Air 05/01/17 14:00 95 22 123/97 96 Nasal Cannula 3.00 05/01/17 13:00 84 05/01/17 13:00 84 22 108/79 97 Nasal Cannula 3.00 05/01/17 12:00 96 Nasal Cannula 05/01/17 12:00 86 18 125/79 96 Nasal Cannula 3.00 8/8/17 11:00 105 17 142/99 98 Nasal Cannula 3.00 05/01/17 10:00 104 21 130/94 93 Nasal Cannula 3.00 05/01/17 09:00 86 12 118/94 95 Nasal Cannula 3.00 05/01/17 08:00 95 21 116/78 93 Room Air 05/01/17 08:00 96 Nasal Cannula 05/01/17 07:00 81 05/01/17 07:00 81 15 113/75 99 Nasal Cannula 3.00 05/01/17 06:45 92 16 102/60 98 Nasal Cannula 3.00 I & O 05/02/17 07:00 Intake Total 5426.70 ml Output Total 5000 ml Balance 426.70 ml General Appearance: No Apparent Distress, WD/WN, Anxious HEENT: Pharynx Normal Neck: Supple Respiratory: Chest Non Tender, Lungs Clear, Normal Breath Sounds, No Accessory Muscle Use, No Respiratory Distress Cardiovascular: Regular Rate, Rhythm, No Murmur Capillary Refill: Less Than 3 Seconds Gastrointestinal: normal bowel sounds, non tender, soft Extremity: Normal Capillary Refill Neurologic/Psychiatric: Alert, Oriented x3, Depressed Affect Skin: Normal Color, Warm/Dry Lymphatic: No Adenopathy Results Lab Laboratory Tests 05/01/17 01:12 05/01/17 06:05 05/02/17 04:25 Assessment/Plan Assessment/Plan Attempted suicide with severe depression -- PT has attempted suicide in the past by taking a handful of ASA -He admits to having 3 shots of antifreeze -Mental health evaluation -PT can not be allowed to leave AMA until after evaluated by -Pt will probably need inpatient psych. Anion gap metabolic acidosis -continue Fomepizole until Ethylene glycol level is less then 20 -Deliver Ethylene glycol labs to [place] for faster results -Poison control is following ETOH dependance - monitor for withdrawal -Ativan PRN -CIWA protocol hx of seizures -continue Keppra -seizure precautions I will discuss patients care with RN, pharmacy, and PCP. 233 Clinical Quality Measures DVT/VTE Risk/Contraindication: Risk Factor Score Per Nursin RFS Level Per Nursing on Admit: 1=Low/No VTE PPX SANG ROSS DO May 02, 2017 06:41
[2017-05-02] MEDS ORDERED: morphine INJ 4 MG/ML 1 ML (VIAL/SYRINGE) IVP PRN (07:00)
--- NOTE | 2017-05-02 07:35 | Progress Note (SOAP) ---
Subjective Date Seen by Provider: May 02, 2017 Time Seen by Provider: 07:00 Subjective/Events-last exam Awake and communicating well. Still depressed about the "whole situation" Objective Exam Vital Signs Date Time Temp Pulse Resp B/P (MAP) Pulse Ox O2 Delivery O2 Flow Rate FiO2 05/02/17 06:00 72 14 108/87 98 Nasal Cannula 2.00 05/02/17 05:00 64 20 111/82 95 Nasal Cannula 2.00 05/02/17 04:00 99.5 Nasal Cannula 2.00 05/02/17 04:00 68 13 126/92 98 Nasal Cannula 2.00 05/02/17 04:00 96 Nasal Cannula 2.00 05/02/17 03:00 80 14 113/68 98 Nasal Cannula 2.00 05/02/17 02:02 Nasal Cannula 2.00 05/02/17 02:00 78 28 107/66 93 Room Air 05/02/17 01:00 77 05/02/17 01:00 71 25 104/69 92 Room Air 05/02/17 00:00 76 24 129/99 93 Room Air 05/02/17 00:00 99.2 Room Air 05/02/17 00:00 96 Room Air 05/01/17 23:00 70 10 118/86 92 Room Air 05/01/17 22:00 75 25 126/86 94 Room Air 05/01/17 21:00 80 28 127/91 95 Room Air 05/01/17 20:00 81 23 138/74 93 Room Air 05/01/17 20:00 99.3 Room Air 05/01/17 20:00 96 Room Air 05/01/17 19:00 80 26 129/86 94 Room Air 05/01/17 19:00 84 05/01/17 18:00 81 19 104/73 92 Room Air 05/01/17 17:00 80 19 99/64 94 Room Air 05/01/17 16:00 81 23 138/74 93 Room Air 05/01/17 16:00 96 Nasal Cannula 05/01/17 15:00 79 20 127/85 90 Room Air 05/01/17 14:00 95 22 123/97 96 Nasal Cannula 3.00 05/01/17 13:00 84 05/01/17 13:00 84 22 108/79 97 Nasal Cannula 3.00 05/01/17 12:00 96 Nasal Cannula 05/01/17 12:00 86 18 125/79 96 Nasal Cannula 3.00 05/01/17 11:00 105 17 142/99 98 Nasal Cannula 3.00 05/01/17 10:00 104 21 130/94 93 Nasal Cannula 3.00 05/01/17 09:00 86 12 118/94 95 Nasal Cannula 3.00 05/01/17 08:00 95 21 116/78 93 Room Air 05/01/17 08:00 96 Nasal Cannula I & O 05/02/17 07:00 Intake Total 5426.70 ml Output Total 5000 ml Balance 426.70 ml Capillary Refill : Less Than 3 Seconds General Appearance: No Apparent Distress Respiratory: Lungs Clear Cardiovascular: Regular Rate, Rhythm Results Lab Laboratory Tests 05/02/17 04:25: White Blood Count 4.9, Red Blood Count 4.33L, Hemoglobin 13.4, Hematocrit 39L, Mean Corpuscular Volume 91, Mean Corpuscular Hemoglobin 31, Mean Corpuscular Hemoglobin Concent 34, Red Cell Distribution Width 12.9, Platelet Count 145, Mean Platelet Volume 11.2H, Neutrophils (%) (Auto) 59, Lymphocytes (%) (Auto) 30 , Monocytes (%) (Auto) 9, Eosinophils (%) (Auto) 2, Basophils (%) (Auto) 1, Neutrophils # (Auto) 2.9, Lymphocytes # (Auto) 1.4, Monocytes # (Auto) 0.4, Eosinophils # (Auto) 0.1, Basophils # (Auto) 0.0, Sodium Level 139, Potassium Level 3.9, Chloride Level 108H, Carbon Dioxide Level 22, Anion Gap 9, Blood Urea Nitrogen 7, Creatinine 0.75, Estimat Glomerular Filtration Rate > 60, BUN/ Creatinine Ratio 9, Glucose Level 97, Calcium Level 8.0L, Phosphorus Level 3.7, Magnesium Level 1.5L, Serum Alcohol < 10 Assessment/Plan Assessment/Plan Assess & Plan/Chief Complaint 1. Ethylene glycol ingestion -Fomepizole given in the emergency department per protocol 05/01 awaiting levels 2 Ethyl alcohol intoxication 3. Depression -mental health evaluation 05/01 evaluation once medically stable 4. Suicidal actions 5. Seizure disorder--[facility] Clinical Quality Measures DVT/VTE Risk/Contraindication: Risk Factor Score Per Nursin RFS Level Per Nursing on Admit: 1=Low/No VTE PPX ALMA DELIA MORENO MD May 02, 2017 07:35
[2017-05-02] MEDS: NICOTINE 21 MG (NICODERM) PATCH TD SCH ×2 (08:24→14:45)
[2017-05-02] MEDS: NICOTINE PATCH REMOVAL TP SCH (08:25)
[2017-05-02] MEDS: PANTOPRAZOLE 40 MG (PROTONIX) TAB PO SCH (08:25)
[2017-05-02] MEDS: ENOXAPARIN 40 MG/0.4 ML (LOVENOX) SYR SC SCH (08:25)
[2017-05-02] MEDS: LEVETIRACETAM 500 MG (KEPPRA) TAB PO SCH ×2 (08:25→20:15)
--- NOTE | 2017-05-02 09:09 | Diagnostic Imaging Report ---
INDICATION: Suicide attempt. Antifreeze ingestion. COMPARISON: 05/01/2017. FINDINGS: An upright portable view of the chest was obtained. The heart size is normal. The pulmonary vessels appear unremarkable. There is no pneumothorax or pleural fluid demonstrated. The bilateral perihilar and basilar opacities seen on the recent prior study have shown significant improvement with perhaps very minimal persistent basilar opacity. No new abnormalities are seen. IMPRESSION: There is perhaps very minimal persistent bilateral basilar airspace disease, significantly improved from the prior study. The chest has nearly normalized when compared to the prior exam. No significant new abnormality is seen. Dictated by: Dictated on workstation # [id number]
[2017-05-02] MEDS: LORazepam INJ 2 MG/ML (ATIVAN) VIAL IV PRN (20:15)
[2017-05-02] MEDS ORDERED: MAGNESIUM 1 GM/100 ML IVPB 100 ML IV SCH (20:30)
[2017-05-03] VITALS (13 sets, daily range): BP systolic 113–164; BP diastolic 78–109
[2017-05-03] MEDS: NS IV 1000 ML 1,000 ML IV SCH ×3 (00:33→08:13)
[2017-05-03] MEDS: FOMEPIZOLE IV SCH (01:55)
[2017-05-03] MEDS: NS IV SCH (01:55)
[2017-05-03 04:41] LABS: BASOPHILS % (AUTO) 1 % (0-10); EOSINOPHILS # (AUTO) 0.2 10^3/uL (0.0-0.3); EOSINOPHILS % (AUTO) 3 % (0-10); LYMPHOCYTES # (AUTO) 1.9 X 10^3 (1.0-4.0); LYMPHOCYTES % (AUTO) 38 % (12-44); MEAN CORPUSCULAR HEMOGLOBIN 31 PG (25-34); MEAN CORPUSCULAR HGB CONC 34 G/DL (32-36); MEAN CORPUSCULAR VOLUME 89 FL (80-99); MEAN PLATELET VOLUME 11.4 FL (7.4-10.4); MONOCYTES # (AUTO) 0.5 X 10^3 (0.0-1.0); MONOCYTES % (AUTO) 9 % (0-12); NEUTROPHILS # (AUTO) 2.4 X 10^3 (1.8-7.8); NEUTROPHILS % (AUTO) 49 % (42-75); PLATELET COUNT 136 10^3/uL (130-400); RED BLOOD COUNT 4.69 10^6/uL (4.35-5.85); RED CELL DISTRIBUTION WIDTH 12.7 % (10.0-14.5); WHITE BLOOD COUNT 4.9 10^3/uL (4.3-11.0)
[2017-05-03 04:57] LABS: ALCOHOL < 10 MG/DL (<10); ANION GAP 11 MMOL/L (5-14); BLOOD UREA NITROGEN 9 MG/DL (7-18); BUN/CREATININE RATIO 13; CALCIUM 8.7 MG/DL (8.5-10.1); CARBON DIOXIDE 21 MMOL/L (21-32); CHLORIDE 109 MMOL/L (98-107); GFR ESTIMATED > 60; GLUCOSE 99 MG/DL (70-105); MAGNESIUM 1.6 MG/DL (1.8-2.4); PHOSPHORUS 4.5 MG/DL (2.3-4.7); SODIUM 141 MMOL/L (135-145)
[2017-05-03] MEDS: CATHETER FLUSH 10 ML SYR IV SCH (05:09)
[2017-05-03] MEDS: MAGNESIUM 1 GM/100 ML IVPB 100 ML IV SCH ×5 (05:15→10:30)
[2017-05-03] MEDS: KCL 20 MEQ TAB (K-DUR) PO SCH (05:15)
[2017-05-03] MEDS: POTASSIUM CL 10MEQ/50ML IVPB 50 ML IV SCH (05:15)
[2017-05-03] MEDS: PANTOPRAZOLE 40 MG (PROTONIX) TAB PO SCH (06:01)
[2017-05-03] MEDS: ENOXAPARIN 40 MG/0.4 ML (LOVENOX) SYR SC SCH (06:01)
--- NOTE | 2017-05-03 07:17 | Pulmonary Progress Note ---
Subjective Time Seen by Provider: 07:17 Subjective/Events-last exam No symptoms of withdrawal. PT is comfortable and compliant. Exam Exam Vital Signs Date Time Temp Pulse Resp B/P (MAP) Pulse Ox O2 Delivery O2 Flow Rate FiO2 05/03/17 06:00 62 22 161/109 98 Nasal Cannula 2.00 05/03/17 05:00 71 24 164/109 Nasal Cannula 2.00 05/03/17 04:00 64 19 125/78 96 Nasal Cannula 2.00 05/03/17 04:00 96 Room Air 05/03/17 03:00 65 18 134/84 Nasal Cannula 2.00 05/03/17 02:00 66 26 154/109 Nasal Cannula 2.00 05/03/17 01:00 72 05/03/17 01:00 64 12 123/81 96 Nasal Cannula 2.00 05/03/17 00:00 97.3 05/03/17 00:00 95 Room Air 05/03/17 00:00 64 12 113/82 96 Nasal Cannula 2.00 05/02/17 23:00 75 13 116/103 94 Nasal Cannula 2.00 05/02/17 22:00 103 14 153/100 94 Nasal Cannula 2.00 05/02/17 21:00 75 14 132/93 95 Nasal Cannula 2.00 05/02/17 20:05 95 Room Air 05/02/17 20:00 98.5 05/02/17 20:00 78 10 154/115 95 Nasal Cannula 2.00 05/02/17 19:00 81 05/02/17 19:00 81 13 141/116 97 Nasal Cannula 2.00 05/02/17 18:00 86 22 150/108 97 Nasal Cannula 2.00 05/02/17 17:00 73 18 142/99 96 Nasal Cannula 2.00 05/02/17 16:59 98 Nasal Cannula 2.00 05/02/17 16:00 97.8 82 23 140/89 96 Nasal Cannula 2.00 05/02/17 15:00 82 9 150/108 99 Nasal Cannula 2.00 05/02/17 14:00 75 13 138/91 99 Nasal Cannula 2.00 05/02/17 13:00 67 19 138/91 95 Nasal Cannula 2.00 05/02/17 13:00 76 05/02/17 12:00 67 18 134/102 98 Nasal Cannula 2.00 05/02/17 11:51 98 Nasal Cannula 2.00 05/02/17 11:51 98.0 84 18 120/97 98 Nasal Cannula 2.00 05/02/17 11:00 87 20 120/97 97 Nasal Cannula 2.00 05/02/17 10:00 73 16 117/83 100 Nasal Cannula 2.00 05/02/17 08:00 68 13 130/93 98 Nasal Cannula 2.00 05/02/17 07:58 Nasal Cannula 2.00 05/02/17 07:44 96 Nasal Cannula 2.00 05/02/17 07:43 97.5 90 14 113/97 96 Nasal Cannula 2.00 I & O 05/03/17 07:00 Intake Total 5500.85 ml Output Total 8625 ml Balance -3124.15 ml General Appearance: No Apparent Distress HEENT: Pharynx Normal Neck: Supple Respiratory: Lungs Clear Cardiovascular: Regular Rate, Rhythm Capillary Refill: Less Than 3 Seconds Gastrointestinal: normal bowel sounds, non tender, soft Extremity: Normal Capillary Refill Neurologic/Psychiatric: Alert, Oriented x3, Depressed Affect Skin: Normal Color, Warm/Dry Lymphatic: No Adenopathy Results Lab Laboratory Tests 05/02/17 04:25 05/03/17 04:20 Assessment/Plan Assessment/Plan Attempted suicide with severe depression -- PT has attempted suicide in the past by taking a handful of ASA -Mental health evaluation -PT can not be allowed to leave AMA until after evaluated by -Pt will probably need inpatient psych. Anion gap metabolic acidosis-- resolved -continue Fomepizole until Ethylene glycol level is less then 20 -Deliver Ethylene glycol labs to [place] for faster results -Poison control is following ETOH dependance - monitor for withdrawal -Ativan PRN -CIWA protocol hx of seizures -continue Keppra -seizure precautions I will discuss patients care with RN, pharmacy, and PCP. 233 Clinical Quality Measures DVT/VTE Risk/Contraindication: Risk Factor Score Per Nursin RFS Level Per Nursing on Admit: 1=Low/No VTE PPX SANG ROSS DO May 03, 2017 07:17
--- NOTE | 2017-05-03 07:21 | Progress Note (SOAP) ---
Subjective Date Seen by Provider: May 03, 2017 Time Seen by Provider: 07:05 Subjective/Events-last exam Patient voices no complaints this am. Tolerating regular diet. Stepfather and brothers came by yesterday to visit with him. His mother and daughter seen him during pm of 89. Objective Exam Vital Signs Date Time Temp Pulse Resp B/P (MAP) Pulse Ox O2 Delivery O2 Flow Rate FiO2 05/03/17 06:00 62 22 161/109 98 Nasal Cannula 2.00 05/03/17 05:00 71 24 164/109 Nasal Cannula 2.00 05/03/17 04:00 64 19 125/78 96 Nasal Cannula 2.00 05/03/17 04:00 96 Room Air 05/03/17 03:00 65 18 134/84 Nasal Cannula 2.00 05/03/17 02:00 66 26 154/109 Nasal Cannula 2.00 05/03/17 01:00 72 05/03/17 01:00 64 12 123/81 96 Nasal Cannula 2.00 05/03/17 00:00 97.3 05/03/17 00:00 95 Room Air 05/03/17 00:00 64 12 113/82 96 Nasal Cannula 2.00 05/02/17 23:00 75 13 116/103 94 Nasal Cannula 2.00 05/02/17 22:00 103 14 153/100 94 Nasal Cannula 2.00 05/02/17 21:00 75 14 132/93 95 Nasal Cannula 2.00 05/02/17 20:05 95 Room Air 05/02/17 20:00 98.5 05/02/17 20:00 78 10 154/115 95 Nasal Cannula 2.00 05/02/17 19:00 81 05/02/17 19:00 81 13 141/116 97 Nasal Cannula 2.00 05/02/17 18:00 86 22 150/108 97 Nasal Cannula 2.00 05/02/17 17:00 73 18 142/99 96 Nasal Cannula 2.00 05/02/17 16:59 98 Nasal Cannula 2.00 05/02/17 16:00 97.8 82 23 140/89 96 Nasal Cannula 2.00 05/02/17 15:00 82 9 150/108 99 Nasal Cannula 2.00 05/02/17 14:00 75 13 138/91 99 Nasal Cannula 2.00 05/02/17 13:00 67 19 138/91 95 Nasal Cannula 2.00 05/02/17 13:00 76 05/02/17 12:00 67 18 134/102 98 Nasal Cannula 2.00 05/02/17 11:51 98 Nasal Cannula 2.00 05/02/17 11:51 98.0 84 18 120/97 98 Nasal Cannula 2.00 05/02/17 11:00 87 20 120/97 97 Nasal Cannula 2.00 05/02/17 10:00 73 16 117/83 100 Nasal Cannula 2.00 05/02/17 08:00 68 13 130/93 98 Nasal Cannula 2.00 05/02/17 07:58 Nasal Cannula 2.00 05/02/17 07:44 96 Nasal Cannula 2.00 05/02/17 07:43 97.5 90 14 113/97 96 Nasal Cannula 2.00 I & O 05/03/17 07:00 Intake Total 5500.85 ml Output Total 8625 ml Balance -3124.15 ml Capillary Refill : Less Than 3 Seconds General Appearance: No Apparent Distress (and communicating well) Respiratory: Lungs Clear Cardiovascular: Regular Rate, Rhythm Gastrointestinal: soft Results Lab Laboratory Tests 05/03/17 04:20: White Blood Count 4.9, Red Blood Count 4.69, Hemoglobin 14.4, Hematocrit 42, Mean Corpuscular Volume 89, Mean Corpuscular Hemoglobin 31, Mean Corpuscular Hemoglobin Concent 34, Red Cell Distribution Width 12.7, Platelet Count 136, Mean Platelet Volume 11.4H, Neutrophils (%) (Auto) 49, Lymphocytes (%) (Auto) 38 , Monocytes (%) (Auto) 9, Eosinophils (%) (Auto) 3, Basophils (%) (Auto) 1, Neutrophils # (Auto) 2.4, Lymphocytes # (Auto) 1.9, Monocytes # (Auto) 0.5, Eosinophils # (Auto) 0.2, Basophils # (Auto) 0.0, Sodium Level 141, Potassium Level 4.0, Chloride Level 109H, Carbon Dioxide Level 21, Anion Gap 11, Blood Urea Nitrogen 9, Creatinine 0.70, Estimat Glomerular Filtration Rate > 60, BUN/ Creatinine Ratio 13, Glucose Level 99, Calcium Level 8.7, Phosphorus Level 4.5, Magnesium Level 1.6L, Serum Alcohol < 10 Assessment/Plan Assessment/Plan Assess & Plan/Chief Complaint 1. Ethylene glycol ingestion -Fomepizole given in the emergency department per protocol 05/01 awaiting levels 05/03 Ethylene glycol level drawn this am and should be available this afternoon. If levels below 20 may dc fomepizole. 2. Ethyl alcohol intoxication 05/03 levels <10 as of 05/02 3. Depression -mental health evaluation 05/01 evaluation once medically stable 4. Suicidal actions 5. Seizure disorder--history of -[facility] Clinical Quality Measures DVT/VTE Risk/Contraindication: Risk Factor Score Per Nursin RFS Level Per Nursing on Admit: 1=Low/No VTE PPX ALMA DELIA MORENO MD May 03, 2017 07:21
[2017-05-03] MEDS: NICOTINE 21 MG (NICODERM) PATCH TD SCH (08:14)
[2017-05-03] MEDS: LEVETIRACETAM 500 MG (KEPPRA) TAB PO SCH (08:15)
[2017-05-03] MEDS: NICOTINE PATCH REMOVAL TP SCH (08:49)
[2017-05-03] MEDS ORDERED: NS IV SCH (14:00)
[2017-05-03] MEDS ORDERED: FOMEPIZOLE IV SCH (14:00)
[2017-05-03 17:29] LABS: ABG BASE EXCESS -0.8 MMOL/L (-2.5-2.5); ABG HCO3 23 MMOL/L (23-27); ABG OXYGEN SATURATION 97 % (94-100); ABG PCO2 38 MMHG (35-45); ABG PO2 80 MMHG (79-93); ABG TCO2 24.6 MMOL/L (21.0-31.0)
[2017-05-03 17:30] LABS: ALLENS TEST POSITIVE; PATIENT TEMP 97.9
== END 2017-05-03 17:56 | disposition home or self-care (01) | DRG 918 ==
LOC: EDUNIT# 01:07 → ER 01:09 → ICU 02:10
PROVIDERS: ADMIT Family Medicine; ATTEND Family Medicine
DX: T52.8X2A Toxic effect of other organic solvents, intentional self-harm, initial encounter (principal); T51.0X2A Toxic effect of ethanol, intentional self-harm, initial encounter; F10.229 Alcohol dependence with intoxication, unspecified; F32.9 Major depressive disorder, single episode, unspecified; G40.909 Epilepsy, unspecified, not intractable, without status epilepticus; E87.2 Acidosis; F17.210 Nicotine dependence, cigarettes, uncomplicated
CPT/HCPCS: 36415; 71010; 80048; 80053; 80306; 80320; 80329; 81000; 82150; 82693; 82805; 83735; 83930; 84100; 84443; 85025; 85610; 85730; 93005; 93041; 96361; 96365; 96375